=== PATIENT | male | born 1970 | race African-American/Black ===

== ENCOUNTER 2024-07-18 09:46 | Inpatient (IN) | payer OTHER, MEDICAID ==
[~2024-07-18] VITALS: Ht 188 cm; Wt 108.9 kg
[2024-07-18] MEDS: ONDANSETRON HCL 4MG/2ML INJ IV STA (10:14)
[2024-07-18] MEDS: SODIUM CHLORIDE 0.9% 1,000 ML IV ONE (10:14)
[2024-07-18 10:44] LABS: HEMATOCRIT. 31.8 % (42.0-52.0); HEMOGLOBIN. 10.4 g/dL (14.0-18.0); MEAN CORPUSCULAR HEMOGLOBIN 27.6 pg (28.0-32.0); MEAN CORPUSCULAR HGB CONC 32.8 g/dL (31.0-37.0); MEAN CORPUSCULAR VOLUME 83.9 fL (80.0-94.0); MEAN PLATELET VOLUME 8.1 fl (7.4-10.4); PLATELET 495 x1000/uL (130-400); RED BLOOD CELL COUNT 3.79 mill/uL (4.7-6.1); RED CELL DISTRIBUTION WIDTH 13.8 % (11.6-14.6); WHITE BLOOD COUNT 17.2 x1000/uL (4.5-11.0)
[2024-07-18 10:50] LABS: CHLORIDE 97 mEq/L (98-107); SODIUM 133 mEq/L (136-145)
[2024-07-18 10:51] LABS: CALCIUM 8.7 mg/dL (8.7-10.4); CARBON DIOXIDE 21 mEq/L (21-32)
[2024-07-18 10:54] LABS: DIFFERENTIAL COMMENT 1
[2024-07-18 10:56] LABS: CREATININE 2.3 mg/dL (0.6-1.3); UREA NITROGEN BLOOD 26 mg/dL (9-23)
[2024-07-18 11:34] LABS: GLUCOSE 466 mg/dL (70-105)
[2024-07-18 11:35] LABS: TROPONIN I HIGH SENSITIVITY < 4 ng/L (3.0-53)
[2024-07-18 11:37] LABS: PLATELET ESTIMATE INCREAS
[2024-07-18] MEDS: SODIUM CHLORIDE 0.9% (SEPSIS BOLUS) IV ONE (12:11)
[2024-07-18] MEDS: PIPERACILLIN/TAZO 3.375G/50ML 50 ML IV ONE (12:12)
[2024-07-18] MEDS: VANCOMYCIN 1G PREMIX 200 ML IV ONE (12:23)
[2024-07-18 12:51] LABS: ALANINE AMINOTRANSFERASE < 7 IU/L (10-49); ALBUMIN 3.8 g/dL (3.2-4.8); ASPARTATE AMINOTRANSFERASE 10 IU/L (<34); BILIRUBIN DIRECT 0.2 mg/dL (<=3.0); BILIRUBIN TOTAL 0.7 mg/dL (0.1-1.0); PROTEIN TOTAL 7.4 g/dL (6.0-8.3)
[2024-07-18 13:16] LABS: LACTIC ACID 2.1 mmol/L (0.4-2.0)
[2024-07-18 13:34] LABS: TROPONIN I HIGH SENSITIVITY < 4 ng/L (3.0-53)
[2024-07-18 13:47] VITALS: BP 171/104; PULSE 108; RESP 21; TEMP 37
[2024-07-18] MEDS ORDERED: MAGNESIUM/ALUMINUM HYDROXIDE/SIMETHICONE 30ML UDC PO PRN (14:00)
[2024-07-18] MEDS ORDERED: ACETAMINOPHEN 325MG TABLET PO PRN (14:00)
[2024-07-18 14:03] VITALS: BP 171/104; PULSE 108; RESP 21; TEMP 37
[2024-07-18] MEDS ORDERED: DEXTROSE 50% WATER 50ML SYRINGE IV PRN (14:15)
[2024-07-18] MEDS ORDERED: AMLO-905 PO (14:31)
[2024-07-18] MEDS ORDERED: METO10TA3 PO (14:31)
[2024-07-18] MEDS ORDERED: INSU100I28 SQ (14:31)
[2024-07-18] MEDS ORDERED: ERGO1250 (14:31)
[2024-07-18] MEDS ORDERED: LOSA-20 PO (14:31)
[2024-07-18] MEDS ORDERED: INSU100I41 (14:31)
[2024-07-18] MEDS ORDERED: ASPI-1497 PO (14:31)
[2024-07-18] MEDS: ASPIRIN 81MG TABLET PO SCH (14:45)
[2024-07-18] MEDS: EZETIMIBE 10MG TABLET PO SCH (14:45)
[2024-07-18] MEDS: LOSARTAN 50 MG TABLET PO SCH (14:46)
[2024-07-18] MEDS: AMLODIPINE 10MG TABLET PO SCH (14:51)
[2024-07-18] MEDS: ONDANSETRON HCL 4MG/2ML INJ IV PRN (14:51)
[2024-07-18] MEDS: INSULIN LISPRO 100 UNITS/ML SUBCUT NR (14:57)
[2024-07-18 16:00] VITALS: BP 151/104; PULSE 96; RESP 17; TEMP 36.7; O2SAT 96
[2024-07-18] MEDS: ENOXAPARIN 40MG/0.4ML SYR SUBCUT SCH (16:03)
[2024-07-18] MEDS: VANCOMYCIN 1GM/200ML PMX (BAXTER) IV NR (16:10)
[2024-07-18] MEDS: BLOOD SUGAR DIAGNOSTIC STRIP TEST SCH (16:39)
[2024-07-18] MEDS: INSULIN LISPRO 100 UNITS/ML SUBCUT SCH (18:12)
[2024-07-18 20:00] VITALS: BP 149/99; PULSE 72; RESP 16; TEMP 36.4; O2SAT 98
[2024-07-18] MEDS: ATORVASTATIN CALCIUM 10MG TABLET PO SCH (21:58)
[2024-07-18] MEDS: PIPERACILLIN/TAZO 3.375G/50ML 50 ML IV SCH (21:59)
[2024-07-18] MEDS: INSULIN GLARGINE 100 UNITS/ML SUBCUT SCH (22:18)
[2024-07-19] VITALS: BP 157/95; PULSE 99; RESP 20; TEMP 36.7; O2SAT 98
[2024-07-19 00:06] LABS: *AMPHETAMINES SCREEN URINE NEGATIVE (NEGATIVE); *BARBITURATES SCREEN URINE NEGATIVE (NEGATIVE); *BENZODIAZEPINES SCREEN URINE NEGATIVE (NEGATIVE)
[2024-07-19 00:07] LABS: *COCAINE SCREEN URINE NEGATIVE (NEGATIVE); CANNABINOID URINE SCREEN PRESUMPTIVE POSITIVE (NEGATIVE); ECSTASY MDMA SCREEN URINE NEGATIVE (NEGATIVE); METHADONE URINE SCREEN NEGATIVE (NEGATIVE); OPIATES URINE SCREEN NEGATIVE (NEGATIVE); PHENCYCLIDINE URINE SCREEN NEGATIVE (NEGATIVE)
[2024-07-19 04:00] VITALS: BP 149/99; PULSE 72; RESP 16; TEMP 36.4; O2SAT 98
[2024-07-19 08:00] VITALS: BP 152/97; PULSE 95; RESP 18; TEMP 36.6; O2SAT 98
[2024-07-19 08:53] LABS: POTASSIUM 3.9 mEq/L (3.5-5.1)
[2024-07-19] MEDS: LOSARTAN 50 MG TABLET PO SCH (08:53)
[2024-07-19 08:55] LABS: CALCIUM 9.2 mg/dL (8.7-10.4)
[2024-07-19 08:59] LABS: CREATININE 1.9 mg/dL (0.6-1.3)
[2024-07-19 10:38] LABS: EOSINOPHILS % 0.9 % (0.0-5.0); HEMATOCRIT. 31.2 % (42.0-52.0); HEMOGLOBIN. 10.3 g/dL (14.0-18.0); LYMPHOCYTES % 14.1 % (20.0-50.0); MEAN CORPUSCULAR HEMOGLOBIN 27.8 pg (28.0-32.0); MEAN CORPUSCULAR VOLUME 84.3 fL (80.0-94.0); MEAN PLATELET VOLUME 8.6 fl (7.4-10.4); MONOCYTES % 6.1 % (2.0-8.0); NEUTROPHILS % 77.9 % (40.0-76.0); PLATELET 452 x1000/uL (130-400); RED CELL DISTRIBUTION WIDTH 13.8 % (11.6-14.6)
[2024-07-19 12:00] VITALS: BP 136/82; PULSE 86; RESP 14; TEMP 36.8; O2SAT 97
[2024-07-19] MEDS: SODIUM HYPOCHLORITE 0.125% 473ML SOLUTION TOP SCH (12:36)
[2024-07-19] MEDS: VANCOMYCIN 1.25GM/250ML IV SCH (12:59)
[2024-07-19 16:00] VITALS: BP 130/93; PULSE 95; RESP 23; TEMP 36.3; O2SAT 98
[2024-07-19] MEDS: PIPERACILLIN/TAZO 3.375G/50ML 50 ML IV SCH (16:02)
[2024-07-19 20:02] VITALS: BP 133/91; PULSE 96; RESP 18; TEMP 37.4; O2SAT 99
[2024-07-20 00:02] VITALS: BP 141/94; PULSE 93; RESP 16; TEMP 36.1; O2SAT 98
[2024-07-20 04:02] VITALS: BP 152/88; PULSE 93; RESP 16; TEMP 36.2; O2SAT 98
[2024-07-20 07:13] LABS: POTASSIUM 4.1 mEq/L (3.5-5.1)
[2024-07-20 07:14] LABS: CALCIUM 8.6 mg/dL (8.7-10.4)
[2024-07-20 07:20] LABS: CREATININE 1.9 mg/dL (0.6-1.3)
[2024-07-20 08:00] VITALS: BP 146/97; PULSE 99; RESP 26; TEMP 36.9; O2SAT 97
[2024-07-20] MEDS ORDERED: AMOX1TAB15 MT (09:46)
[2024-07-20] MEDS ORDERED: DOXY100C5 MT (09:46)
[2024-07-20] MEDS: LACTULOSE 20G/30ML UDC PO NR (10:26)
[2024-07-20 11:30] VITALS: BP 146/97; PULSE 99; TEMP 98.5; O2SAT 97
[2024-07-20 12:00] VITALS: BP 141/102; PULSE 91; RESP 18; TEMP 37.1; O2SAT 96
[2024-07-20 16:00] VITALS: BP 148/99; PULSE 86; RESP 13; TEMP 36.9; O2SAT 99
== END 2024-07-20 19:50 | disposition home or self-care (01) | DRG 919 ==
LOC: ER 09:46 → 3WST 11:46 → EDBEDREQ 11:51 → EDBEDREQTM 11:51
PROVIDERS: ADMIT Internal Medicine; ATTEND Internal Medicine
PROC: 0HBNXZZ Excision of Left Foot Skin, External Approach (ICD-10-PCS; principal; 2024-07-19)
DX: T81.89XA Other complications of procedures, not elsewhere classified, initial encounter (principal); A41.9 Sepsis, unspecified organism; N17.9 Acute kidney failure, unspecified; E11.65 Type 2 diabetes mellitus with hyperglycemia; D64.9 Anemia, unspecified; E11.40 Type 2 diabetes mellitus with diabetic neuropathy, unspecified; I12.9 Hypertensive chronic kidney disease with stage 1 through stage 4 chronic kidney disease, or unspecified chronic kidney disease; N18.9 Chronic kidney disease, unspecified; I16.0 Hypertensive urgency; Z89.431 Acquired absence of right foot; Z89.432 Acquired absence of left foot; Y83.8 Other surgical procedures as the cause of abnormal reaction of the patient, or of later complication, without mention of misadventure at the time of the procedure; Y92.89 Other specified places as the place of occurrence of the external cause
CPT/HCPCS: 36415; 71045; 73630; 80048; 80076; 80202; 80305; 82962; 83036; 83605; 83880; 84145; 84484; 85025; 85651; 87070; 87077; 87186; 93005; 99291; A4606; J1650; J1815; J2405; J2543; J3370; J7030